=== PATIENT | male | born 1955 | race Caucasian/White ===

== ENCOUNTER → 2016-07-22 | Outpatient (CLI) | payer OTHER ==
[~2016-07-22] MED LIST: ALBU17IN INH; ATEN50TA2 PO; FLOM5CAP PO; LEVA500T PO; LISI10TA4 PO; LORA1TAB12 PO; OMEP40CA2 PO; PERCOCET PO; TYLE650T35 PO
[2016-07-22 19:15] LABS: INR 0.92
== END ==
LOC: M SMT 13:55
PROVIDERS: ATTEND Urology
DX: C61 Malignant neoplasm of prostate (principal)

== ENCOUNTER 2016-07-23 05:41 | Inpatient (IN) | payer OTHER ==
[2016-07-23] VITALS (7 sets, daily range): BP systolic 102–132; BP diastolic 57–72
[~2016-07-23] VITALS: Ht 172.7 cm; Wt 80.5 kg
[~2016-07-23 05:41] MED LIST changes: -LEVA500T PO; -LISI10TA4 PO; -PERCOCET PO
[2016-07-23] MEDS ORDERED: LR 1,000 ML IV SCH ×2 (06:00→11:45)
[2016-07-23] MEDS ORDERED: LevoFLOXacin 500 MG in APPROPRIATE DILUENT 1 EA IV ONE (06:00)
[2016-07-23] MEDS ORDERED: LISI10TA4 PO (06:51)
[2016-07-23] MEDS ORDERED: ROCURONIUM BROMIDE 50 MG/5 ML VIAL As Ordered ONE ×3 (07:07→09:08)
[2016-07-23] MEDS ORDERED: LIDOCAINE 2% INJ 100 MG/5 ML SDV (FOR ANES.) As Ordered ONE (07:07)
[2016-07-23] MEDS ORDERED: PROPOFOL 200 MG/20 ML VIAL As Ordered ONE (07:07)
[2016-07-23] MEDS ORDERED: ONDANSETRON 4MG/2ML VIAL (J2405) As Ordered ONE ×2 (07:07→11:30)
[2016-07-23] MEDS ORDERED: MIDAZOLAM INJ 2 MG/2 ML VIAL (J2250) As Ordered ONE (07:09)
[2016-07-23] MEDS ORDERED: fentaNYL 100 MCG/2 ML INJECTION (J3010) As Ordered ONE ×4 (07:09→11:30)
[2016-07-23] MEDS ORDERED: DESFLURANE 240 ML INHALANT As Ordered ONE (07:15)
[2016-07-23] MEDS ORDERED: ePHEDrine SULFATE 25 MG/5 ML(5MG/ML) SYRINGE As Ordered ONE ×2 (09:54)
[2016-07-23] MEDS ORDERED: NEOSTIGMINE 1MG/ML 5 ML SYRINGE (J2710) As Ordered ONE (10:48)
[2016-07-23] MEDS ORDERED: GLYCOPYRROLATE INJ 0.2 MG/ML 2 ML VIAL As Ordered ONE (10:48)
[2016-07-23] MEDS ORDERED: SUGAMMADEX SODIUM 500 MG/5 ML VIAL (BRIDION) As Ordered ONE (11:11)
[2016-07-23] MEDS: fentaNYL 100 MCG/2 ML INJECTION (J3010) IV PRN ×4 (11:30→11:45)
[2016-07-23] MEDS ORDERED: ONDANSETRON 4MG/2ML VIAL (J2405) IV PRN ×2 (11:45→12:00)
[2016-07-23 11:53] LABS: MEAN CORPUSCULAR HEMOGLOBIN 32.5 pg (27.0-33.0); MEAN CORPUSCULAR VOLUME 98.5 fl (80.0-96.0); RED CELL DISTRIBUTION WIDTH 13.1 % (11.5-14.5); WHITE BLOOD COUNT 16.5 K/mm3 (4.0-10.0)
[2016-07-23] MEDS ORDERED: HYDROmorphone HCL 1 MG/ML SYRINGE (J1170) As Ordered ONE (11:54)
[2016-07-23] MEDS: HYDROmorphone HCL 1 MG/ML SYRINGE (J1170) IV PRN ×5 (11:55→12:15)
[2016-07-23 12:05] LABS: ANION GAP 8 MEQ/L (8-16); BLOOD UREA NITROGEN 14 MG/DL (7-18); CALCIUM LEVEL 8.2 MG/DL (8.8-10.2); CARBON DIOXIDE LEVEL 25 MEQ/L (21-32); CHLORIDE LEVEL 105 MEQ/L (98-107); CREATININE FOR GFR 1.25 MG/DL (0.70-1.30); GLOMERULAR FILTRATION RATE > 60.0 (>49); GLUCOSE, FASTING 158 MG/DL (80-110); SODIUM LEVEL 138 MEQ/L (136-145)
[2016-07-23] MEDS: KCL 20MEQ IN D5/0.45NS 1000ML 1,000 ML IV SCH ×2 (13:24→20:54)
[2016-07-23] MEDS: ACETAMINOPHEN 650MG ER TAB (TYLENOL ARTHRITIS) PO SCH ×2 (13:49→20:54)
[2016-07-23] MEDS: NICOTINE 21MG/24HR 1 EA TRANSDERMAL TD SCH (14:44)
[2016-07-23] MEDS: MORPHINE 4 MG/ML 1ML SYRINGE IV PRN ×2 (14:44→17:44)
[2016-07-23] MEDS ORDERED: PANTOPRAZOLE 40MG INJ (PROTONIX) (C9113) IV SCH (18:00)
--- NOTE | 2016-07-23 18:52 | RO ---
DATE OF PROCEDURE: 07/23/2016 PREPROCEDURE DIAGNOSIS: Prostate cancer. POSTPROCEDURE DIAGNOSIS: Prostate cancer. PROCEDURE: Robotic-assisted radical prostatectomy plus bilateral pelvic lymph node dissections. SURGEON: Dr. Tank Jacobs PROFESSIONAL B[employer] FISHERMAN: Allyson Ogden ANESTHESIA: General. ESTIMATED BLOOD LOSS: 50 mL. COMPLICATIONS: None. HISTORY OF THE PRESENT ILLNESS: This is a 61-year-old male patient with clinical T2N0M0 prostate cancer, Brit 8, 12 positive biopsies out of 12. Prostate-specific antigen (PSA) of 31. The patient has consented for a robotic-assisted radical prostatectomy plus bilateral pelvic lymph node dissection. DESCRIPTION OF PROCEDURE: In a patient under general anesthesia in supine modified low lithotomy position, after prepping and draping the area of concern which included the entire genitalia and abdomen, we started by doing an incision in the midline, infraumbilically, for about 2 cm in length. Through this incision, we opened with electro Bovie cautery the external rectus fascia. We then proceeded to actually separate the midline with digital finger dissection and then placed the Balloon SpaceMaker to dissect the Retzius space. We then proceeded to remove the Balloon SpaceMaker and place the balloon trocar. We inserted the balloon trocar and inflated the balloon to 40 mL. Through this trocar, we introduced CO2 of a maximum pressure of 15 at high flow to create the extraperitoneal space. We then proceeded to actually introduce a 0 robotic handheld optic to help in the positioning of the trocars in a fan-shaped manner, two on the right side and two on the left side. The two on the right side were 8 mm metallic trocars by each other by 8 cm, in a fan-shaped manner. On the left side, a 12 mm VersaStep, 4 cm away from the midline was placed and 8 cm away from this one, another 8 mm metallic trocar in a fan-shaped manner. We then proceeded to place the patient in steep Trendelenburg position. The patient had already a Mauro catheter, 16-Romanian, draining the bladder content with a 10 mL balloon. At that moment in time, we docked the robot, and we introduced a monopolar scissor on the left side and bipolar PK on the right side. On the third arm, we used a ProGrasp. We then proceeded to actually dissect the periprosthetic fat around the prostate gland, identified the endopelvic fascia on the left and the right from base to apex and then proceeded open the fascia. Once the dorsal vein complex was identified we ligated it with a CT1 needle in 0 Vicryl times two. We did perform another stitch also with a CT1-0 and #0 Vicryl times one and ligated the dorsal vein complex,on more time. At that moment in time, with monopolar scissors, we opened the anterior bladder neck, we deflated the balloon and grabbed the Mauro catheter and put it into traction anteriorly with the third arm. This placed into traction the posterior bladder neck. We cut the posterior bladder neck and then the posterior detrusor muscle and landed on the vas deferens. We dissected both vas deferens and seminal vesicles and then ligated the prostatic pedicles with Hem-o-loks times two on the left side and times two on the right side. We then proceeded to cut the posterior Denonvilliers fascia and dissect the rectum away from the prostate gland from base to apex. We then proceeded to actually mobilize the prostate, once it was attached to the urethra and the dorsal vein complex, we cut the dorsal vein complex and cut the urethra. We took the Mauro catheter out. We placed the prostate into Endo Catch bag, 10 mm in diameter. We then proceeded to suture ligate the dorsal vein complex with a #3-0 V-Loc. We then proceeded to reconstruct the posterior Denonvilliers fascia with a #3-0 V-Loc, also in a running fashion. We then proceeded to close the bladder neck with a #3-0 V-Loc bilaterally, and the bladder neck was actually closed laterally to produce a smaller bladder neck. At that moment in time, we actually did a urethrovesical anastomosis with a #2-0 absorbable stitch Quill stitch bradford suture, double needle. We started at 6 o'clock outside in in the bladder neck and inside out in the urethra, running it across 360 degrees around the urethra and putting a Mauro catheter 20-Romanian, inflating the balloon to 20 mL and tying the knot. We then proceeded to actually do bilateral pelvic lymph node dissection. The limits of dissection was inferiorly lacunar ligament, posteriorly the pelvic sidewall, medially the bladder, superiorly the bifurcation of the iliac arteries and laterally the external iliac arteries. We took out the obturator lymph nodes, the iliac vein lymph nodes, the hypogastric lymph nodes and the common iliac vein lymph nodes on the left side and also on the right side. We actually did lymphostasis with Hem-o-loks and bipolar PKs. We then proceeded to actually place each lymph node packet in a 10 mm Endo Catch bag and then undocked the third arm and introduced a ORLY drain 15 blade round into the pelvis. We then proceeded to take all the instruments out and undock the robot. We then proceeded to take all the trocars out and extract the specimens, prostate and seminal vesicles in one bag, as well as periprostatic fat and the left pelvic lymph node dissection and right pelvic lymph node dissection in each bag. We then proceeded to close the fascia of the rectus muscle in the midline with #2-0 Vicryl in a UR6 needle in a running suture and then closed the skin with #4-0 Monocryl subcuticular stitches. We suture ligated the ORLY drain to the skin with #2-0 nylon and placed the drain to bulb suction. A new Mauro catheter had been in place before our anastomosis; it was a 20-Romanian Mauro catheter, two-way , with a 20 mL balloon to gravity. Plan: The patient will go to recovery, then to the floor. Once he is tolerating a regular diet and ambulating very well, he will be discharged home with antibiotic and pain medication. There were no complications of surgery. Estimated blood loss was 50 mL. MTDD
[2016-07-23] MEDS: LORazepam 1 MG TAB PO PRN (22:38)
[2016-07-23] MEDS ORDERED: SIMETHICONE 80 MG CHEW TAB PO PRN (23:45)
[2016-07-24] MEDS: MORPHINE 4 MG/ML 1ML SYRINGE IV PRN ×4 (00:14→13:14)
[2016-07-24 01:30] VITALS: BP 143/73
[2016-07-24] MEDS: KCL 20MEQ IN D5/0.45NS 1000ML 1,000 ML IV SCH ×2 (03:41→11:54)
[2016-07-24 05:30] VITALS: BP 137/79
[2016-07-24] MEDS: ACETAMINOPHEN 650MG ER TAB (TYLENOL ARTHRITIS) PO SCH ×2 (05:56→13:13)
[2016-07-24] MEDS: LORazepam 1 MG TAB PO PRN (05:57)
[2016-07-24] MEDS ORDERED: LevoFLOXacin 500 MG TABLET PO SCH (06:00)
[2016-07-24 06:47] LABS: MEAN CORPUSCULAR HEMOGLOBIN 32.8 pg (27.0-33.0); MEAN CORPUSCULAR HGB CONC 33.4 g/dl (32.0-36.5); MEAN CORPUSCULAR VOLUME 98.1 fl (80.0-96.0); RED CELL DISTRIBUTION WIDTH 13.1 % (11.5-14.5); WHITE BLOOD COUNT 17.1 K/mm3 (4.0-10.0)
[2016-07-24 07:13] LABS: ANION GAP 7 MEQ/L (8-16); BLOOD UREA NITROGEN 7 MG/DL (7-18); CALCIUM LEVEL 8.4 MG/DL (8.8-10.2); CARBON DIOXIDE LEVEL 28 MEQ/L (21-32); CHLORIDE LEVEL 104 MEQ/L (98-107); CREATININE FOR GFR 0.84 MG/DL (0.70-1.30); GLOMERULAR FILTRATION RATE > 60.0 (>49); GLUCOSE, FASTING 113 MG/DL (80-110); POTASSIUM SERUM 3.7 MEQ/L (3.5-5.1); SODIUM LEVEL 139 MEQ/L (136-145)
[2016-07-24] MEDS ORDERED: LISINOPRIL 10 MG TAB PO SCH (09:00)
[2016-07-24] MEDS ORDERED: ATENOLOL 50 MG TAB PO SCH (09:00)
[2016-07-24] MEDS: NICOTINE 21MG/24HR 1 EA TRANSDERMAL TD SCH (09:23)
[2016-07-24 09:24] VITALS: BP 141/86
[2016-07-24 10:00] VITALS: BP 131/67
[2016-07-24 14:00] VITALS: BP 126/74
[2016-07-24] MEDS ORDERED: PERCOCET PO (15:56)
[2016-07-24] MEDS ORDERED: LEVA500T PO (15:56)
--- NOTE | 2016-07-24 21:24 | DSES ---
DATE OF ADMISSION: 07/23/2016 DATE OF DISCHARGE: 07/24/2016 ADMISSION DIAGNOSIS: Prostate cancer. DISCHARGE DIAGNOSIS: Prostate cancer. SURGERY PERFORMED: Robotic assisted radical prostatectomy, plus bilateral pelvic lymph node dissections. ADMITTING SURGEON: Tank Jacobs MD DISCHARGE SURGEON: Tank Jacobs MD SURGERY PERFORMED BY: Tank Jacobs MD COMPLICATIONS: None. HISTORY OF PRESENT ILLNESS: This is a 61-year-old male patient with clinical stage T2N0M0, Brit 8 prostate cancer. The patient has consented for a robotic assisted radical prostatectomy and bilateral pelvic lymph node dissections. The surgery was performed on July 23, 2016. After this he was admitted to the hospital. HOSPITALIZATION COURSE: The patient did very well. By postoperative day #1 he was tolerating a regular diet, passing gas, ambulating very well. Pain was controlled with by mouth (p.o.) pain medication. He requested to go home and we agreed with this. For this reason we discontinued the ORLY drain which was only putting out 10 mL in 24 hours. We will send him home with a Mauro catheter to gravity. He cannot carry or lift weight above 20 pounds. He may shower in three days. No driving for two weeks. He will followup in 10 days at [facility] for removal of Mauro catheter. He will go home with Levaquin 500 mg one tablet by mouth every day. He will go home with Percocet 5/325 mg one tablet every 6 hours as needed (p.r.n.) for pain. He may shower in three days. There were no complications from the surgery.
== END 2016-07-24 17:40 | disposition home or self-care (01) | DRG 480 ==
LOC: M OR 05:41 → M MS5PR 13:00
PROVIDERS: ADMIT Urology; ATTEND Urology
PROC: 07BC3ZX Excision of Pelvis Lymphatic, Percutaneous Approach, Diagnostic (ICD-10-PCS; 2016-07-23)
PROC: 8E0W3CZ Robotic Assisted Procedure of Trunk Region, Percutaneous Approach (ICD-10-PCS; 2016-07-23)
PROC: 0VT00ZZ Resection of Prostate, Open Approach (ICD-10-PCS; principal; 2016-07-23 07:30)
DX: C61 Malignant neoplasm of prostate (principal); F17.210 Nicotine dependence, cigarettes, uncomplicated; I10 Essential (primary) hypertension; Z79.899 Other long term (current) drug therapy

== ENCOUNTER → 2016-09-06 | Outpatient (REF) | payer OTHER ==
[~2016-09-06] MED LIST changes: +LEVA500T PO; +LISI10TA4 PO; +PERCOCET PO
== END ==
LOC: M LAB REF 13:19
PROVIDERS: ATTEND Urology
DX: C61 Malignant neoplasm of prostate (principal)

== ENCOUNTER → 2021-12-11 | Outpatient (CLI) | payer OTHER ==
[~2021-12-11] MED LIST changes: +ACET650T61 PO; +FLOM0.4C39 PO; -FLOM5CAP PO; +LEVA1TAB2 PO; -LEVA500T PO; +LISI10TA22 PO; -LISI10TA4 PO; -LORA1TAB12 PO; +LORA1TAB4 PO; -OMEP40CA2 PO; +OMEP40CA4 PO; -TYLE650T35 PO
== END ==
LOC: M PAIN 08:30
PROVIDERS: ATTEND Nurse Practitioner Family
DX: R68.84 Jaw pain (principal); G89.29 Other chronic pain; J44.9 Chronic obstructive pulmonary disease, unspecified; K21.9 Gastro-esophageal reflux disease without esophagitis; F17.210 Nicotine dependence, cigarettes, uncomplicated; Z86.59 Personal history of other mental and behavioral disorders; Z88.0 Allergy status to penicillin; Z88.5 Allergy status to narcotic agent; Z88.6 Allergy status to analgesic agent; Z79.01 Long term (current) use of anticoagulants; Z79.899 Other long term (current) drug therapy